=== PATIENT | female | born 1980 | race American Indian/Alaskan Native ===

== ENCOUNTER 2018-01-27 17:17 | Emergency (ER) | payer OTHER ==
[2018-01-27 17:27] VITALS: BP 130/77
--- NOTE | 2018-01-27 21:31 | Emergency Department Report ---
ED Upper Extremity Inj HPI - General Chief Complaint: Extremity Injury, Upper Stated Complaint: LEFT ARM PAIN Time Seen by Provider: 01/27/18 21:05 Source: patient Mode of arrival: Ambulatory Limitations: No Limitations - History of Present Illness Initial Comments: Patient 37-year-old female status post total abdominal hysterectomy who presents for left arm weakness 3 days states it gradually got weak patient denies a Friday night event no EtOH no substance did not sleep on her arm not wake up with sudden paralysis or numbness no chest pain or shortness of breath no dizziness no lightheadedness no nausea no vomiting forearm and hand normal strength no before meals joint tenderness no swelling patient denies fall injury or trauma weakness was supination and pronation grasp normal strength MD Complaint: Injury to:: left, shoulder, arm Onset/Timin -: Gradual Other Extremity Injury: Arm: Left, Shoulder: Left Other Injuries: none Severity scale (0 -10): 2 Improves With: none Worsens With: none Associated Symptoms: weakness. denies: numbness, suspects foreign body, nausea/ vomiting, heard/felt popping sensat - Related Data Previous Rx's Medication Instructions Recorded Last Taken Type Gabapentin [Neurontin] 100 mg PO Q8HR #30 capsule 01/27/18 Unknown Rx Naproxen [Naprosyn] 500 mg PO BID PRN #30 tablet 01/27/18 Unknown Rx Allergies Allergy/AdvReac Type Severity Reaction Status Date / Time No Known Allergies Allergy Unverified 01/27/18 17:24 ED Review of Systems ROS: Stated complaint: LEFT ARM PAIN Other details as noted in HPI Constitutional: denies: chills, fever Eyes: denies: eye pain, eye discharge, vision change ENT: denies: ear pain, throat pain Respiratory: denies: cough, shortness of breath, wheezing Cardiovascular: denies: chest pain, palpitations Endocrine: no symptoms reported Gastrointestinal: denies: abdominal pain, nausea, diarrhea Genitourinary: denies: urgency, dysuria, discharge Musculoskeletal: myalgia. denies: back pain, joint swelling, arthralgia Skin: denies: rash, lesions Neurological: weakness (left upper arm). denies: headache, numbness, paresthesias, confusion, abnormal gait, vertigo Psychiatric: denies: anxiety, depression Hematological/Lymphatic: denies: easy bleeding, easy bruising ED Past Medical Hx - Past Medical History Previous Medical History?: No - Surgical History Additional Surgical History: Breast augmentation - Social History Smoking Status: Never Smoker Substance Use Type: Alcohol - Medications Home Medications: Home Medications Medication Instructions Recorded Confirmed Last Taken Type Gabapentin [Neurontin] 100 mg PO Q8HR #30 capsule 01/27/18 Unknown Rx Naproxen [Naprosyn] 500 mg PO BID PRN #30 tablet 01/27/18 Unknown Rx ED Physical Exam - General Limitations: No Limitations General appearance: alert, in no apparent distress - Head Head exam: Present: atraumatic, normocephalic, normal inspection - Eye Eye exam: Present: normal appearance, PERRL, EOMI Pupils: Present: normal accommodation - ENT ENT exam: Present: mucous membranes moist - Neck Neck exam: Present: normal inspection, tenderness (mild left lateral neck muscle tenderness reproducible to deep palpation ), full ROM. Absent: meningismus, lymphadenopathy, thyromegaly - Expanded Neck Exam Expanded Neck exam: Absent: tenderness, midline deformity, anterior neck swelling, tracheal deviation - Respiratory Respiratory exam: Present: normal lung sounds bilaterally. Absent: respiratory distress, wheezes, stridor, chest wall tenderness - Cardiovascular Cardiovascular Exam: Present: regular rate, normal rhythm, normal heart sounds. Absent: systolic murmur, diastolic murmur, rubs, gallop - GI/Abdominal GI/Abdominal exam: Present: soft, normal bowel sounds. Absent: distended, tenderness, guarding, rebound, rigid, organomegaly, mass, bruit, pulsatile mass , hernia - Rectal Rectal exam: Present: deferred - Extremities Exam Extremities exam: Present: normal capillary refill. Absent: full ROM, tenderness, pedal edema, joint swelling, calf tenderness - Expanded Upper Extremity Exam Left Shoulder Exam: Present: normal inspection. 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 Absent: full ROM, tenderness, swelling, abrasion, laceration, ecchymosis, deformity, crepidus, dislocation, erythema Elbow exam: Present: normal inspection, full ROM. Absent: tenderness Forearm Wrist exam: Present: normal inspection, full ROM. Absent: tenderness Hand Wrist exam: Present: normal inspection, full ROM. Absent: tenderness Neuro motor exam: Present: wrist extension intact, thumb opposition intact, thumb IP flexion intact, thumb adduction intact, fingers 2-5 abduction intact Neurosensory exam: Present: 2-point discrimination, radial nerve intact, ulnar nerve intact, median nerve intact Vascular: Present: normal capillary refill, radial pulse, brachial pulse, ulnar pulse. Absent: vascular compromise, Pallo, pulse deficit radial art, pulse deficit ulnar art, pulse deficit brachial art - Back Exam Back exam: Present: normal inspection, full ROM. Absent: tenderness, CVA tenderness (R), CVA tenderness (L), muscle spasm, paraspinal tenderness, vertebral tenderness - Neurological Exam Neurological exam: Present: alert, oriented X3, CN II-XII intact, normal gait, motor sensory deficit (left shoulder weakness ), reflexes normal - Expanded Neurological Exam Expanded Patient oriented to: Present: person, place, time Speech: Present: fluid speech Cranial nerves: EOM's Intact: Normal, Gag Reflex: Normal, Tongue Deviation: Normal, Nystagmus: Normal, Facial Sensation: Normal, Facial Palsy with Forehead Movement: Normal, Facial Palsy without Forehead Movement: Normal Cerebellar function: Finger to Nose: Normal, Heel to Bull: Normal, Romberg: Normal Upper motor neuron: Vasquez Neglect: Normal, Pronator Drift: Normal, Babinski Sign : Normal, Sensory Extinction: Normal Sensory exam: Upper Extremity Light Touch: Normal, Upper Extremity Pin Prick: Normal, Upper Extremity Temperature: Normal, UE 2 Point Discrimination: Normal, Lower Extremity Light Touch: Normal, Lower Extremity Pin Prick: Normal, Lower Extremity Temperature: Normal, LE 2 Point Discrimination: Normal Motor strength exam: RUE: 4, LUE: 5, RLE: 5, LLE: 5 DTR: bicep (R): 2+, bicep (L): 2+, tricep (R): 2+, tricep (L): 2+, knee (R): 2+ , knee (L): 2+, ankle (R): 2+, ankle (L): 2+ Best Eye Response (Gary): (4) open spontaneously Best Motor Response (Gary): (6) obeys commands Best Verbal Response (Neida): (5) oriented Gary Total: 15 - Psychiatric Psychiatric exam: Present: normal affect, normal mood - Skin Skin exam: Present: warm, dry, intact, normal color. Absent: rash ED Course Vital Signs 01/27/18 17:25 Temperature 98.9 F Pulse Rate 90 Respiratory 18 Rate Blood Pressure 130/77 O2 Sat by Pulse 100 Oximetry ED Medical Decision Making - Radiology Data Radiology results: image reviewed xray shoulder no deformity no fracture no soft tissue abnormality , ct head normal no bleed no cva, no - Medical Decision Making This is likely radiculopathy CT head and shoulder x-rays are normal mild left lateral neck muscle pain . Extremity range of motion intact mild left shoulder weakness pulses +2 bilaterally. 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 ED Disposition Clinical Impression: Radiculopathy affecting upper extremity Disposition: DC-01 TO HOME OR SELFCARE Is pt being admited?: No Does the pt Need Aspirin: No Condition: Good Instructions: Cervical Radiculopathy (ED) Prescriptions: Gabapentin [Neurontin] 100 mg PO Q8HR #30 capsule Naproxen [Naprosyn] 500 mg PO BID PRN #30 tablet PRN Reason: Pain , Severe (7-10) Referrals: PRIMARY MD ELIZABETH [Primary Care Provider] - 3-5 Days RAMA REY MD [Referring] - 3-5 Days Forms: Work/School Release Form(ED) Time of Disposition: 23:15
--- NOTE | 2018-01-27 22:52 | Cat Scan Report ---
FINAL REPORT PROCEDURE: CT HEAD/BRAIN WO CON TECHNIQUE: Computerized tomography of the head was performed without contrast material. HISTORY: left arm weakness COMPARISON: No prior studies are available for comparison. FINDINGS: Skull and scalp: Normal. Paranasal sinuses: Normal. Ventricles and subarachnoid spaces: Normal. Cerebrum: No evidence of hemorrhage, acute infarction or mass . Cerebellum and brainstem: No evidence of hemorrhage, acute infarction or mass. Vasculature: Normal. Comments: None. IMPRESSION: Normal Examination
--- NOTE | 2018-01-27 23:16 | XRay Report ---
FINAL REPORT EXAM: XR SHOULDER 2+V LT HISTORY: left arm pain weakness TECHNIQUE: Three views left shoulder Comparison: None FINDINGS: Normal bony mineralization. No fracture or dislocation. Imaged loss lung apex is clear. Acromioclavicular space measures 4 millimeters. IMPRESSION: No acute fracture or dislocation.
== END 2018-01-27 23:40 | disposition home or self-care (01) ==
LOC: ED 17:17
DX: M54.12 Radiculopathy, cervical region (principal); M25.512 Pain in left shoulder; Z90.710 Acquired absence of both cervix and uterus
CPT/HCPCS: 70450; 99284